=== PATIENT | male | born 1980 | race Caucasian/White ===

== ENCOUNTER 2017-10-18 05:30 | Day surgery (SDC) | payer OTHER ==
[~2017-10-18] VITALS: Ht 180.3 cm; Wt 93.4 kg
--- NOTE | ~2017-10-18 | O ---
[facility] [place] [address] [place] [address] OPERATIVE REPORT Name: IMAN YEH Room #: 150-8 [facility] M..#: [id number] Admission: 10/18/17 Attend Phys: Micah Luke MD Discharge: Date of : 82 Report #: [id number] THIS REPORT FOR: //name// CC: Apolonia Luke DATE OF SERVICE: 10/18/2017 PREOPERATIVE DIAGNOSES: Deviated nasal septum, turbinate hypertrophy, sleep disorder breathing. POSTOPERATIVE DIAGNOSES: Deviated nasal septum, turbinate hypertrophy, sleep disorder breathing. PROCEDURE: Nasal septal reconstruction, inferior turbinate submucous resection with bilateral outfracturing. SURGEON: Micah Luke MD ANESTHESIA: General LMA. FINDINGS: As noted in the HPI, the quadrangular cartilage had a large bow to the left side with the left edge off the maxillary crest. There is a large spurring involving a good portion of the vomer to the left side as well as nearly impacting against the inferior turbinate. TECHNIQUE: After obtaining consent, the patient was brought to the operating suite, appropriate timeout was performed. General LMA anesthesia was obtained via inhalational route, maintained throughout the case. The bed was turned 90 degrees. Nose was prepped and draped in usual sterile fashion. A right-sided hemitransfixion incision was made with elevation of the mucosal flap on the left side, off the quadrangular cartilage, then the vomer and perpendicular plate. The bony cartilaginous junction was disarticulated with a caudal elevator. A large quadrangular piece of cartilage was harvested in the deviated portion, leaving enough on the caudal and superior edges for tip support. I then back elevated mucosal flap on the right side prior to removing the quadrangular cartilage and exposing the vomer and perpendicular plate on the right side as well. Using a combination of double action scissors or Archel forceps, the deviation of the vomer and the superior portion of perpendicular plate was removed. I then returned to the maxillary crest where I elevated over the maxillary crest and the remaining quadrangular cartilage was left intact in the inferior portion against the maxillary crest. This removed in piecemeal fashion with Rachel forceps and double action scissors. I trimmed down the left edge of the maxillary crest as well, which had a small spur on it. There was a small mucosal rent very anteriorly on the right side and posterior inferior on the left. These were left intact for postoperative drainage purposes. Previously [facility] [address] [place] [address] OPERATIVE REPORT Name: IMAN YEH Room #: 150-8 [facility] M.R.#: [id number] Admission: 10/18/17 Attend Phys: Micah Luke MD Discharge: Date of : 82 Report #: [id number] harvested cartilage was trimmed to a flat size morcellized until it was flattened and placed back between the septal fold. Hemitransfixion incision was secured with 4-0 simple interrupted chromic sutures. Simple splints were designed and fashioned by myself, placed in each side of the septum, secured with a 3-0 Prolene suture. Inferior turbinates were addressed by injecting local anesthetic on each side submucosally, care being made not to inject intravascularly. Total local anesthetic used was 10 mL. A small incision was made in the anterior face of each inferior turbinate with elevation of mucosal flap on the medial, medial inferior surfaces with the submucous resection performed with the microdebrider. Inferior turbinate was outfractured with a [place] elevator. Merogel was placed over the area to prevent any synechia formation and compression of the turbinate. The nasopharynx was suctioned free of secretions. He was allowed to wake from anesthesia, went to recovery in stable condition. ESTIMATED BLOOD LOSS: 10 mL. <ELECTRONICALLY SIGNED> By: Micah Luke MD 10/18/17 1058 [id number] [id number] Micah Luke MD /nt
--- NOTE | ~2017-10-18 | H ---
[facility] [address] [address] HISTORY AND PHYSICAL Name: IMAN YEH Room #: 150-8 [facility] M.R.#: [id number] Admission: 10/18/17 Attend Phys: Micah Luke MD Discharge: Date of : 82 Report #: [id number] THIS REPORT FOR: //name// CC: Apolonia Luke DATE OF SURGERY: 10/18. CHIEF COMPLAINT: Nasal airway obstruction, sleep disorder breathing. HISTORY OF PRESENT ILLNESS: The patient is a 37-year-old gentleman who presented in August of this year with complaints of nasal airway obstruction and loud snoring. On presentation, he was noted to have a substantial nasal septal deviation to the left side, nearly impacting against the left inferior and middle turbinates. Initially, we recommended obtaining a sleep study which showed he has sleep disorder breathing, but no obstructive sleep apnea. Given he is still bothered by the nasal airway obstruction, he was given the options of medical and surgical intervention. I recommended to strongly consider surgical intervention. Discussed the risks involved as outlined in this patient's chart. He understands that correction of his nasal airway obstruction may not entirely impact the sleep disorder breathing, but to a degree where he may need further therapy for that. I also reviewed the medical options to improve his sleep disordered breathing and nasal airway obstruction. After discussion, he agrees to proceed forward with surgery and that will be for nasal septal reconstruction and turbinate reduction under anesthesia. ALLERGIES TO MEDICATION: None. MEDICATIONS ON ADMISSION: Atorvastatin 40 mg daily, levocetirizine 5 mg daily as needed. PAST MEDICAL HISTORY: Notable for hypothyroidism and allergic rhinitis. PAST SURGICAL HISTORY: Notable for extraction of wisdom teeth. FAMILY HISTORY: Notable for cancer in his father. REVIEW OF SYSTEMS: Negative for any known GI, , cardiovascular, pulmonary or hematopoietic issues. PHYSICAL EXAMINATION: VITAL SIGNS: Height of 5 feet 11, weight of 200 pounds. HEENT: As noted above for the nasal anatomy. Oral cavity and oropharynx show a class 3 Hernandez opening. Tonsils are 2+ in size. NECK: Normal to palpation. CHEST: Clear.. CARDIOVASCULAR: Regular rhythm. Regular rate. [facility] [address] [place] [address] HISTORY AND PHYSICAL Name: IMAN YEH Room #: 150-8 [facility].#: [id number] Admission: 10/18/17 Attend Phys: Micah Luke MD Discharge: Date of : 82 Report #: [id number] ABDOMEN: Benign ASSESSMENT: History of sleep disorder breathing with nasal airway obstruction. PLAN: Will be for a septal reconstruction and turbinate reduction as noted above. <ELECTRONICALLY SIGNED> By: Micah Luke MD 10/18/17 0718 0930 [id number] Micah Luke MD /nt
[~2017-10-18 05:30] MED LIST: ATORVASTATIN CA40 MG PO; MULTIVITAMINS PO; XYZAL5 MG PO
[2017-10-18 09:56] VITALS: BP 126/77
== END 2017-10-18 10:30 | disposition home or self-care (01) ==
LOC: OR 05:30 → TBA 06:12 → OR 10:30
DX: J34.2 Deviated nasal septum (principal); J34.3 Hypertrophy of nasal turbinates; E78.00 Pure hypercholesterolemia, unspecified; E03.9 Hypothyroidism, unspecified; G47.30 Sleep apnea, unspecified; Z98.890 Other specified postprocedural states; Z79.899 Other long term (current) drug therapy
CPT/HCPCS: 50010; 50101; 50386; 50398; 51316; 51634; 53635; 56526; 56528; 62110; 62900; 70005